=== PATIENT | female | born 1985 | race Caucasian/White ===

== ENCOUNTER 2024-11-01 05:15 | Day surgery (SDC) | payer OTHER ==
[2024-10-28 13:45] VITALS: BMI 43.3
[2024-11-01] MEDS: ceFAZolin 2 GRAM PREMIX BAG IVPB ONE
[2024-11-01] MEDS ORDERED: LIDOCAINE 1%/EPI 1:100000 (20 ML MULTI DOSE VIAL) ONE (07:24)
[2024-11-01] MEDS ORDERED: INDOCYANINE GREEN 25 MG/10 ML VIAL IVPUSH ONE (07:24)
[2024-11-01] MEDS ORDERED: BUPIVACAINE HCL/PF 0.5% (5MG/ML) 10 ML VIAL ONE (07:24)
[2024-11-01] MEDS ORDERED: ACETAMINOPHEN INJECTION 100 ML ONE (07:29)
[2024-11-01] MEDS ORDERED: DEXAMETHASONE SOD PHOSPHATE 4 MG/1 ML VIAL ONE (07:37)
[2024-11-01] MEDS ORDERED: ROCURONIUM BROMIDE 50 MG/5 ML SYRINGE ONE ×2 (07:37→09:27)
[2024-11-01] MEDS ORDERED: LIDOCAINE HCL/PF 2% SDV 5ML VIAL ONE (07:37)
[2024-11-01] MEDS ORDERED: ONDANSETRON 4 MG/2 ML VIAL ONE ×2 (07:37→10:50)
[2024-11-01] MEDS ORDERED: MIDAZOLAM HCL 2 MG/2 ML SINGLE DOSE VIAL ONE ×2 (07:38→08:38)
[2024-11-01] MEDS ORDERED: PROPOFOL 40 ML ONE (07:38)
[2024-11-01] MEDS ORDERED: ALBUTEROL SO4 HFA INHALER IH ONE (07:41)
[2024-11-01] MEDS ORDERED: SUCCINYLCHOLINE CHLORIDE 200 MG/10 ML SYRINGE ONE (07:41)
[2024-11-01] MEDS ORDERED: BUPIVACAINE HCL/PF 0.25% (2.5MG/ML) 10 ML VIAL ONE (08:33)
[2024-11-01] MEDS ORDERED: HYDROmorphone HCl 2 MG/ML VIAL ONE (08:39)
[2024-11-01] MEDS: ceFAZolin SODIUM 1 GM VIAL IVPB ONE (09:00)
[2024-11-01] MEDS: BUPIVACAINE HCL/PF 0.25% (2.5MG/ML) 10 ML VIAL IJ ONE ×2 (09:07)
[2024-11-01] MEDS ORDERED: SUGAMMADEX SODIUM 200 MG/2 ML VIAL ONE ×2 (09:27→09:56)
[2024-11-01] MEDS: ONDANSETRON 4 MG/2 ML VIAL IVPUSH PRN (10:54)
[2024-11-01] MEDS: PROMETHAZINE HCL 25 MG/1 ML VIAL IVPB PRN (12:00)
[2024-11-01] MEDS ORDERED: PROMETHAZINE HCL 25 MG/1 ML VIAL ONE ×2 (12:08→13:47)
[2024-11-01] MEDS: ACETAMINOPHEN 1000 MG/100 ML BAG IVPB ONE (13:05)
[2024-11-01] MEDS: LACTATED RINGERS SOLUTION 1,000 ML IV SCH (13:24)
[2024-11-01 14:03] VITALS: RESP 18
[2024-11-01] MEDS ORDERED: KETOROLAC TROMETHAMINE 30 MG/1 ML VIAL IM PRN (14:21)
[2024-11-01] MEDS ORDERED: KETOROLAC TROMETHAMINE 30 MG/1 ML VIAL ONE (14:26)
[2024-11-01] MEDS: KETOROLAC TROMETHAMINE 30 MG/1 ML VIAL IVPUSH PRN (14:31)
[2024-11-01] MEDS ORDERED: oxyCODONE HCL 5 MG TABLET ONE (16:40)
[2024-11-01] MEDS: oxyCODONE HCL 5 MG TABLET PO PRN (16:48)
[2024-11-01 17:50] VITALS: BP 109/60; PULSE 68; TEMP 98.9
[2024-11-01] MEDS ORDERED: KETOROLAC TROMETHAMINE 30 MG/1 ML VIAL IVPB ONE (20:25)
== END 2024-11-01 17:52 | disposition home or self-care (01) ==
LOC: JASU-SURG 05:15
PROVIDERS: ATTEND Obstetrics & Gynecology Gynecologic Oncology
PROC: 0UT7FZZ Resection of Bilateral Fallopian Tubes, Via Natural or Artificial Opening With Percutaneous Endoscopic Assistance (ICD-10-PCS; 2024-11-01)
PROC: 8E0W4CZ Robotic Assisted Procedure of Trunk Region, Percutaneous Endoscopic Approach (ICD-10-PCS; 2024-11-01)
PROC: 0UT9FZZ Resection of Uterus, Via Natural or Artificial Opening With Percutaneous Endoscopic Assistance (ICD-10-PCS; principal; 2024-11-01 08:00)
DX: N85.01 Benign endometrial hyperplasia (principal); N83.8 Other noninflammatory disorders of ovary, fallopian tube and broad ligament
CPT/HCPCS: 58552; S2900; 81025; 82962; 86850; 86900; 86901; 88309-TC; 94760; J0131